=== PATIENT | male | born 1965 | race Caucasian/White ===

== ENCOUNTER 2016-05-11 05:40 | Inpatient (IN) | payer BC, OTHER ==
--- NOTE | 2016-05-07 13:37 | PREOPHP ---
DATE OF ADMISSION: 05/11/2016 he patient to have surgery with Dr. Fabricio Owen 05/11/2016. REASON FOR CONSULTATION: Consultation requested by Dr. Fabricio Owen for medical evaluation and cl earance of a 51-year-old gentleman about to undergo surgery on his left shoulder. Thank you, Dr. Owen, for allowing us to participate in the care of this patient. HISTORY OF PRESENT ILLNESS: Leonides Sierra a 51-year-old gentleman with multiple surgeries on both stanley ulders, replacement x2, is currently being admitted for a failed left shoulder replacement for a rev ision and repair. PAST MEDICAL HISTORY: Other than his multiple shoulder surgeries, he has had arthroscopic surgeries on those shoulders as well, had laparoscopic cholecystectomy done, and has had an umbilical hernia repair in the past. He has had no medical hospitalizations nonsurgical. MEDICATIONS: He is currently taking the following medications: Mucinex D and Claritin-D periodical ly, Aleve as needed. ALLERGIES: TYLENOL WITH CODEINE, PROBABLY A SENSITIVITY MORE SO THAN AN ALLERGY. GENERAL HEALTH: Other than his shoulders has been quite good. SOCIAL HISTORY: The patient is , has 2 children. He does not smoke, or drink alcoholic beve rages. Does not drink coffee , and usually has no difficulty sleeping at night. FAMILY HISTORY: Mother age 44 of a stroke, had an aneurysm. Father is 80, [facility] 2 and atrial fibrillation. One brother in good health. There is a family history of diabet es and heart disease, cancer, hypertension, and stroke. REVIEW OF SYSTEMS: HEENT: Periodic migraine headaches and some tension headaches. CARDIORESPIRATORY: Denies any chest pain or shortness of breath. GASTROINTESTINAL: No melena or hematemesis. MUSCULOSKELETAL: Positive for left shoulder pain. NEUROPSYCHIATRIC: Unremarkable. GENERAL HEALTH: As above. PHYSICAL EXAMINATION: VITAL SIGNS: The patient's blood pressure was 160/76, pulse was 76 and regular, respirations 18, te mperature 98.1. Height 5 feet 5-1/2 inches, weight 197 pounds. GENERAL: The patient was noted to be a well-developed, well-nourished male, alert and cooperative, in no apparent acute distress, oriented to time, place, and person. HEAD, EARS, EYES, NOSE AND THROAT: Head was atraumatic. Eyes: Pupils were equal, reactive to ligh t and accommodation. Fundi were benign. Tympanic membranes were unremarkable. Nose was negative. Mouth was unremarkable. Fair oral hygiene was present. NECK: Supple without any rigidity. Trachea was midline. Thyroid was unremarkable. Fair oral hygi zhen was noted. NECK: Supple without any rigidity. Trachea was midline. Thyroid was unremarkable. Neck veins wer e flat. Carotid pulses were equal. No bruits were heard. BACK: Unremarkable. CHEST: Symmetrical. BREASTS AND AXILLARY: Did not reveal any masses. LUNGS: Clear to percussion and auscultation. HEART: PMI is fifth intercostal space at the midclavicular line. A regular sinus rhythm was noted. No significant murmurs, rubs, or gallops being elicited. ABDOMEN: Soft. Good bowel sounds were noted. No significant organomegaly, masses, or tenderness. GENITALIA: Normal male external genitalia. RECTAL AND PROSTATIC: Per PCP, up to date, unremarkable. EXTREMITIES: Did not reveal any clubbing, edema, or cyanosis. Scars were noted on both shoulder ar eas from prior replacements and revisions. Peripheral pulses were physiologic. SKIN: Moist and warm without any eruptions. No gross lymphadenopathy was noted. NEUROLOGIC: Grossly intact. IMPRESSION: 1. Failed left shoulder replacement. 2. Status post bilateral shoulder replacements, right and left. 3. Hypertension. 4. Degenerative joint disease. 5. Stable health. DISCUSSION: Review of laboratory and other data revealed the following: Patient's chemistry panel revealed normal electrolytes, glucose, BUN, creatinine. Liver function tests were basically normal with minimally elevated ALT and AST, probably secondary to fatty infiltration of liver. Patient's h emoglobin A1c was normal, as was his CBC, sed rate, UA, PT, PTT were normal as well. Patient's EKG and chest x-ray were normal, and his bladder scan revealed a residual of 26 mL, well in normal accep table range. DISCUSSION: Dr. Owen, I see no contraindication in this patient undergoing current proposed surg rachel under desired form of anesthesia, and I feel he is a suitable candidate at this particular point in time, and I will be more than happy to follow him up during his stay at [facility]. Thank you again, Dr. Owen, for allowing us to participate in the care of this patient. Dictated By: SHOBHA BROOKE MD SS/JANNY Conf#: [id number] DID#: [id number]
[2016-05-10 11:57] VITALS: Ht 167.6 cm; Wt 88.1 kg
[~2016-05-11] VITALS: Ht 167.6 cm; Wt 88.1 kg
[2016-05-11] VITALS (18 sets, daily range): BP systolic 122–159; BP diastolic 75–95; PULSE 74–110; RESP 12–20
[~2016-05-11 05:40] MED LIST: BUPIVACAINE 0.5% (SDV) 30 ML, morphine SULFATE (PF) 8 MG, EPINEPHrine 0.3 MG, KETOROLAC... IRR SCH; DOXY100T20 PO; METO25TA7 PO
[2016-05-11] MEDS ORDERED: CEFAZOLIN 2 GM/50 ML (PMX) 50 ML IVPB ONE (06:00)
[2016-05-11] MEDS ORDERED: TRANEXAMIC ACID 1,000 MG in SOD CHLORIDE 0.9% 100 ML IVPB ONE (06:00)
[2016-05-11] MEDS ORDERED: traMADol 50 MG TAB PO ONE (06:00)
[2016-05-11] MEDS ORDERED: oxyCODONE (CR) 10 MG TAB [oxyCONTIN] PO ONE (06:00)
[2016-05-11] MEDS ORDERED: DEXAMETHASONE 1 MG TAB PO ONE (06:00)
[2016-05-11] MEDS ORDERED: GABAPENTIN 300 MG CAP PO ONE (06:00)
[2016-05-11] MEDS ORDERED: BUPIVACAINE 0.5%/EPI (SDV) 30 ML INJ ONE (06:33)
[2016-05-11] MEDS ORDERED: THROMBIN 5000 UNIT VIAL ONE (06:33)
[2016-05-11] MEDS ORDERED: CA CHLORIDE 10% 10 ML SYRINGE ONE (06:33)
[2016-05-11] MEDS ORDERED: POLYMYXIN/BACITRACIN 1L IRRIG ONE (06:33)
--- NOTE | 2016-05-11 06:43 | HPN ---
Date/Time of Note Date/Time of Note DATE: 05/11/16 TIME: 06:42 Interval H&P Admission Note Pt. seen H&P reviewed: No system changes SYLVIA PAYTON MD May 11, 2016 06:42
[2016-05-11] MEDS ORDERED: LORA10CA PO (06:50)
[2016-05-11] MEDS ORDERED: ALBU2.5V3 NEB (06:51)
[2016-05-11] MEDS ORDERED: ROCURONIUM 50 MG INJ ONE (06:55)
[2016-05-11] MEDS ORDERED: DEXAMETHASONE 4 MG/ML 1 ML INJ ONE (06:55)
[2016-05-11] MEDS ORDERED: LIDOCAINE 100 MG SYRINGE ONE (06:55)
[2016-05-11] MEDS ORDERED: FENTAnyl 50 MCG/ML VIAL ONE (06:55)
[2016-05-11] MEDS ORDERED: ONDANSETRON 4 MG INJ ONE (06:55)
[2016-05-11] MEDS ORDERED: GLYCOPYRROLATE 0.4 MG INJ ONE (06:55)
[2016-05-11] MEDS ORDERED: NEOSTIGMINE 3 MG/3 ML SYRINGE ONE (06:55)
[2016-05-11] MEDS ORDERED: PROPOFOL 20 ML ONE (06:55)
[2016-05-11] MEDS ORDERED: MIDAZOLAM 1 MG/ML 2 ML INJ ONE (06:55)
[2016-05-11] MEDS ORDERED: ROPIVACAINE 0.5 % 30 ML VIAL ONE (06:56)
[2016-05-11] MEDS ORDERED: CEFAZOLIN 1 GM INJ ONE (07:00)
[2016-05-11] MEDS: BUPIVACAINE 0.5% (SDV) 30 ML, morphine SULFATE (PF) 8 MG, EPINEPHrine 0.3 MG, KETOROLAC... IRR SCH ×14 (07:53→11:19)
[2016-05-11] MEDS ORDERED: FENTAnyl 50 MCG/ML VIAL IV PRN ×3 (08:00)
[2016-05-11] MEDS ORDERED: hydrALAzine 20 MG INJ IV PRN (08:00)
[2016-05-11] MEDS ORDERED: DIPHENHYDRAMINE 50 MG INJ IV PRN ×2 (08:00→09:00)
[2016-05-11] MEDS ORDERED: LABETALOL HCL 20MG INJ IV PRN (08:00)
[2016-05-11] MEDS ORDERED: MEPERIDINE 25 MG INJ IV PRN (08:00)
[2016-05-11] MEDS ORDERED: HYDROmorphONE (0.2 MG/ML) 10ML SYG IV PRN ×3 (08:00)
[2016-05-11] MEDS ORDERED: EPHEDrine SULFATE 50 MG/5 ML SYG IV PRN (08:00)
[2016-05-11] MEDS ORDERED: ONDANSETRON 4 MG INJ IV PRN ×2 (08:00→09:00)
[2016-05-11] MEDS ORDERED: TRIMETHOBENZAMIDE 100 MG/ML VIAL IM PRN (08:00)
[2016-05-11] MEDS ORDERED: MIDAZOLAM 1 MG/ML 2 ML INJ IV PRN (08:00)
[2016-05-11] MEDS ORDERED: ALBUTEROL 0.083% (NEB) 2.5 MG/3 ML AMP NEB PRN ×2 (09:00→14:30)
[2016-05-11] MEDS ORDERED: morphine 2 MG INJ IV PRN (09:00)
[2016-05-11] MEDS ORDERED: TRANEXAMIC ACID 1,000 MG in SOD CHLORIDE 0.9% 100 ML IV ONE (09:00)
[2016-05-11] MEDS ORDERED: ZOLPIDEM 5 MG TAB PO PRN (09:00)
[2016-05-11] MEDS ORDERED: morphine 4 MG/ML VIAL IV PRN (09:00)
[2016-05-11] MEDS ORDERED: MAGNESIUM HYDROXIDE 30ML CUP PO PRN (09:00)
[2016-05-11] MEDS ORDERED: OXYCODONE/ACETAMINOPHEN (5/325) TAB PO PRN (09:00)
[2016-05-11] MEDS ORDERED: LORATADINE 10 MG TAB PO PRN (09:00)
[2016-05-11] MEDS ORDERED: KETOROLAC 15 MG INJ IV PRN (09:00)
[2016-05-11] MEDS ORDERED: ACETAMINOPHEN 500 MG TAB PO PRN (09:00)
--- NOTE | 2016-05-11 09:32 | OPR ---
DATE OF OPERATION: 05/11/2016 SURGEON: Sylvia Owen MD FAMILY SERVICES MANAGER: Chapito Perez MD PREOPERATIVE DIAGNOSIS: Failed left shoulder hemiarthroplasty. POSTOPERATIVE DIAGNOSIS: Failed left shoulder hemiarthroplasty. OPERATION PERFORMED: Revision of left shoulder hemiarthroplasty to reverse total shoulder replaceme nt. [employer] surgeon, Chapito Perez MD, was asked to be present at my request as a result of the complexit y associated with the procedure, including positioning of the extremity, manipulation and protection of the neurovascular structures. In my opinion, the assistance offered by a certified surgical first assistant is insufficient and Dr. Perez should be compensated for his time. PROCEDURE IN DETAIL: Following administration of general endotracheal anesthesia, the patient was p laced in the beach chair position. The previously made deltopectoral incision was then incised. Th e subdeltoid plane was entered and severe scar tissue was then encountered. The subscapularis was s een to be intact. The superior rotator cuff was very thin and nearly completely torn. The joint it self was then entered and the subscapularis and supraspinatus were completely detached and retracted . The humeral component was noted to be grossly loose. One culture was taken and sent for later an alysis. In addition, the evaluation revealed no significant inflammatory component consistent with any infectious process. Once the humeral shaft was removed atraumatically. The glenoid was then exposed. Very severe scar tissue was then resected from around the edges and the central portion of the glenoid was noted to b e fairly well positioned with a good peripheral edge. The decision was then made to perform a prima ry baseplate insertion with no bone grafting. The base of the glenoid face was then reamed up to th e standard baseplate, a 30 mm DePuy baseplate was then applied with solid fixation. Four peripheral screws were inserted with good fixation throughout. A 36 mm glenosphere was then applied. The humeral canal was then reamed up to the 10 mm size. A 10 mm DePuy humeral component with a 3 mm liner was then inserted. This was seen to be the best fit. The shaft and joint were irrigated. T he actual components were then implanted with solid fixation. The joint was taken through a full ra nge of motion with no evident instability. Thorough irrigation was then undertaken. The wound was closed in layers a Prineo dressing was then applied for closure with a watertight seal. The patient was awakened and transported to recovery in stable condition, tolerated procedure well. Estimated blood loss for this procedure was 100 mL. P ostoperative x-rays will be obtained in the recovery room. Dictated By: SYLVIA MCKEON/JANNY Conf#: [id number] DID#: [id number]
--- NOTE | 2016-05-11 10:13 | RADRPT ---
PROCEDURE: XR of the left Shoulder. CLINICAL INDICATION: Postop of the left shoulder TECHNIQUE: Three views of the left shoulder are available for review including AP - Grashey, scapula r Y-view and axillary view. COMPARISON: 05/15/2013 FINDINGS: Since prior examination of 05/15/2013, the left shoulder prosthesis has been revised and replaced. There is a reverse shoulder prosthesis in good position and alignment. No evidence for fracture or bone destructive change. IMPRESSION: 1. Good position and alignment of the left shoulder prosthesis. 2. No acute fractures seen. RPTAT: XX .Bertin White MD, MD Date Time Electronically viewed and signed by .Bertin White MD, on 05/11/2016 10:13 .T/
--- NOTE | 2016-05-11 10:28 | CONS ---
DATE OF ADMISSION: 05/11/2016 DATE OF CONSULTATION: TYPE OF CONSULTATION: Postoperative followup. The patient has had surgery with Dr. Fabricio Owen for a failed shoulder replacement on the left si de. HISTORY OF PRESENT ILLNESS: Patient seen in the recovery room, alert, answering questions appropria tely with no major complaints. OBJECTIVE VITAL SIGNS: Reveal the following, the patient is afebrile, temperature 98.2, pulse 92, respiration s 14, blood pressure 129/78, O2 sat 97%. HEENT: Unremarkable. LUNGS: Clear. HEART: Reveals a regular rhythm. The rest of the exam compatible with status post left shoulder felix rgery. IMPRESSION: 1. Status post revision of the left shoulder replacement. 2. Allergies and asthma. 3. Hypertension, low level. 4. Stable health. DISCUSSION: Plan is to follow him with you in terms of his major issues, which are his allergies an d occasionally his blood pressure; however, blood pressure preoperatively was quite acceptable as we ll as his value postoperatively. We will monitor him during his prior procedures, he has sometimes required medication in terms of controlling his blood pressure. The rest of management per Dr. Owen. Thank you again, Dr. Owen, for allowing us to participate in the care of this patient. Dictated By: SHOBHA FIELDS/JANNY Conf#: [id number] DID#: [id number]
--- NOTE | 2016-05-11 11:04 | PDOCDIS ---
Discharge Instructions DIAGNOSIS Discharge Diagnosis: Shoulder failed arthroplasty CONDITION Patient Condition: Good HOME CARE INSTRUCTIONS: Diet Instructions: Regular ACTIVITY: Activity Restrictions: Slowly Increase Activity Keep Limb Elevated FOLLOW UP/APPOINTMENTS Appointments 2 weeks SCHOOL/WORK RELEASE May return to School/Work with: With Restrictions School/Work Release Comment: Five pound table top usage for four weeks SYLVIA PAYTON MD May 11, 2016 11:04
[2016-05-11] MEDS: CEFAZOLIN 1 GM/50 ML (PMX) 50 ML IVPB SCH ×2 (12:19→20:24)
[2016-05-11] MEDS: DEXAMETHASONE 2 MG TAB PO SCH ×3 (12:19→23:26)
[2016-05-11] MEDS: SENNA/DOCUSATE NA (8.6MG/50MG) TAB PO SCH ×2 (12:20→20:26)
[2016-05-11] MEDS: METOPROLOL (XL) 25 MG TAB PO SCH (17:14)
[2016-05-11] MEDS ORDERED: GABAPENTIN 300 MG CAP PO SCH (21:00)
[2016-05-11] MEDS: OXYCODONE/ACETAMINOPHEN (5/325) TAB PO PRN (23:26)
[2016-05-12] MEDS: CEFAZOLIN 1 GM/50 ML (PMX) 50 ML IVPB SCH (04:26)
--- NOTE | 2016-05-12 05:03 | DS ---
Date/Time of Note Date/Time of Note DATE: 05/12/16 TIME: 05:01 Discharge Summary Admission/Discharge Info Admit Date/Time May 11, 2016 at 05:40 Discharge Date/Time May 12, 2016 Final Diagnosis Failed shoulder partial replacement Patient Condition: Good Procedures Reverse total shoulder replacement Hx of Present Illness Pain and stiffness following partial replacement in 2013 Hospital Course Surgery, followed by observation overnight. D/c home in am Home Meds Reported Medications Albuterol Sulfate* (Albuterol Sulfate* Neb) 0.083%-3 Ml Neb, 1.25 MG NEB Q3H Y for WHEEZING AND SOB, #30 VIAL 05/11/16 Loratadine* (Claritin*) 10 Mg Capsule, 10 MG PO DAILY Y for ALLERGIC REACTION, CAP 05/11/16 Discontinued Reported Medications Doxycycline Hyclate* (Doxycycline Hyclate*) 100 Mg Tablet.dr, 100 MG PO BID, TAB 08/04/15 Metoprolol Succinate* (Toprol XL*) 25 Mg Tab.sr.24h, 25 MG PO HS, #30 TAB 08/04/15 Follow-up Plan Two weeks SYLVIA PAYTON MD May 12, 2016 05:03
[2016-05-12 05:26] LABS: ADD SCAN DIFF NO
[2016-05-12 05:35] VITALS: BP 141/89; PULSE 98; RESP 18
[2016-05-12 05:48] LABS: BASOPHILS % 0.1 % (0.0-2.0); HEMATOCRIT 43.2 % (42.0-52.0); HEMOGLOBIN 14.8 g/dl (14.0-18.0); LYMPHOCYTES # 1.1 10^3/ul (0.8-2.9); LYMPHOCYTES % 5.3 % (15.0-51.0); MEAN CORPUSCULAR HEMOGLOBIN 28.7 pg (29.0-33.0); MEAN CORPUSCULAR HGB CONC 34.3 g/dl (32.0-37.0); MEAN CORPUSCULAR VOLUME 83.7 fl (82.0-101.0); MONOCYTE # 1.4 10^3/ul (0.3-0.9); MONOCYTES % 6.6 % (0.0-11.0); NEUTROPHIL # 18.9 10^3/ul (1.6-7.5); NEUTROPHILS % 87.4 % (39.0-77.0); PLATELET COUNT 215 10^3/UL (140-415); RED BLOOD COUNT 5.16 10^6/ul (4.70-6.10); RED CELL DISTRIBUTION WIDTH 13.2 % (11.5-14.5); WHITE BLOOD COUNT 21.6 10^3/ul (4.8-10.8)
[2016-05-12] MEDS: DEXAMETHASONE 2 MG TAB PO SCH (05:50)
[2016-05-12 06:15] LABS: POTASSIUM 4.4 mmol/L (3.5-5.1)
[2016-05-12 06:17] LABS: CREATININE 0.71 mg/dl (0.61-1.24)
[2016-05-12 06:18] LABS: ALBUMIN/GLOBULIN RATIO 1.37; BILIRUBIN,INDIRECT 0.1 mg/dl (0-1.1); BILIRUBIN,TOTAL 0.1 mg/dl (0.2-1.3); CALCIUM 9.3 mg/dl (8.4-10.2); TOTAL PROTEIN 6.9 g/dl (6.1-8.1)
[2016-05-12] MEDS: OXYCODONE/ACETAMINOPHEN (5/325) TAB PO PRN (07:31)
[2016-05-12 07:54] VITALS: BP 148/89; RESP 18
--- NOTE | 2016-05-12 08:32 | CONS ---
DATE OF ADMISSION: 05/11/2016 DATE OF CONSULTATION: POSTOPERATIVE CONSULTATION FOLLOWUP SUBJECTIVE: The patient is alert, doing well, will be going home today if cleared by physical thera py. No particular complaints. OBJECTIVE: VITAL SIGNS: Temperature 97.3, pulse 82, respirations 18, blood pressure 148/89, O2 sat 96% on room air. HEENT: Unremarkable. LUNGS: Clear. HEART: Reveals a regular rhythm. EXTREMITIES: Left shoulder looks fine in terms of his prior deformities. IMPRESSION: 1. Status post revision of total shoulder replacement on the left side. 2. Hypertension and tachycardia, controlled. DISCUSSION: The patient is quite comfortable at this particular point in time. His white count is elevated, probably secondary to steroid use, with a low lymphocyte count compatible with steroid use . The patient's chemistries including electrolytes, glucose, BUN, and creatinine are all within nor mal limits. Plan is per Dr. Owen. The patient will be going home if cleared by physical therapy . The patient has been given a prescription for Toprol-XL 25 mg 1 b.i.d. The patient needed to mary e that after his last surgical encounter and was advised to follow up with his primary care doctor i n terms of further followup for blood pressure, etc. Thank you again, Dr. Owen, for allowing us to participate in care of this patient. Dictated By: SHOBHA BROOKE MD SS/JANNY Conf#: [id number] DID#: [id number]
[2016-05-12] MEDS ORDERED: ASPIRIN 81 MG TAB PO SCH (09:00)
[2016-05-12] MEDS: SENNA/DOCUSATE NA (8.6MG/50MG) TAB PO SCH (09:01)
[2016-05-12] MEDS: METOPROLOL (XL) 25 MG TAB PO SCH (09:02)
--- NOTE | 2016-05-12 10:29 | PN ---
Date/Time of Note Date/Time of Note DATE: 05/12/16 TIME: 10:25 24 hour Interval Summary Feeling well, no pain. He has been in the sling overnight. His block has resolved. He is eating well without nausea or emesis. He feels ready for discharge home. Physical Exam Vital Signs Date Time Temp Pulse Resp B/P Pulse Ox O2 Delivery O2 Flow Rate FiO2 05/12/16 07:54 97.3 82 18 148/89 96 05/12/16 05:35 Nasal Cannula 2.0 Intake and Output 05/11/16 05/11/16 05/12/16 15:00 23:00 07:00 Intake Total 2210 ml 1800 ml 900 ml Output Total 50 ml 1650 ml 850 ml Balance 2160 ml 150 ml 50 ml VTE Prophylaxis VTE Prophylaxis Intervention: ambulation, anti-embolic stocking Lines/Catheters IV Catheter Type: Peripheral IV Joseph in Place: No Results Result Diagram: 05/12/16 0453 05/12/16 0453 Results 24hrs Laboratory Tests Test 05/12/16 04:53 Alanine Aminotransferase (ALT/SGPT) 64 Albumin 4.0 Albumin/Globulin Ratio 1.37 Alkaline Phosphatase 63 Anion Gap 16 Aspartate Amino Transf (AST/SGOT) 41 Basophils # 0.0 Basophils % 0.1 Blood Urea Nitrogen 15 Calcium Level 9.3 Carbon Dioxide Level 28 Chloride Level 102 Creatinine 0.71 Direct Bilirubin 0.00 Eosinophils # 0.0 Eosinophils % 0.0 Globulin 2.90 Glucose Level 168 Hematocrit 43.2 Hemoglobin 14.8 Indirect Bilirubin 0.1 Lymphocytes # 1.1 Lymphocytes % 5.3 L Mean Corpuscular Hemoglobin 28.7 L Mean Corpuscular Hemoglobin Concent 34.3 Mean Corpuscular Volume 83.7 Mean Platelet Volume 11.0 H Monocytes # 1.4 H Monocytes % 6.6 Neutrophils # 18.9 H Neutrophils % 87.4 H Nucleated Red Blood Cells # 0.0 Nucleated Red Blood Cells % 0.0 Platelet Count 215 Potassium Level 4.4 Red Blood Count 5.16 Red Cell Distribution Width 13.2 Sodium Level 142 Total Bilirubin 0.1 L Total Protein 6.9 White Blood Count 21.6 H Assessment/Plan Chief Complaint/Hosp Course Surgery, followed by observation overnight. D/c home in am Problems: Assessment/Plan 51 y/o M s/p revision left shoulder replacement to reverse total shoulder. - Oral pain control as needed. - Ambulation/SCD's for DVT PPX - Sling at all times except for showers - Ready for DC home today. Medications Medications Home Meds Reported Medications Albuterol Sulfate* (Albuterol Sulfate* Neb) 0.083%-3 Ml Neb, 1.25 MG NEB Q3H Y for WHEEZING AND SOB, #30 VIAL 05/11/16 Loratadine* (Claritin*) 10 Mg Capsule, 10 MG PO DAILY Y for ALLERGIC REACTION, CAP 05/11/16 Discontinued Reported Medications Doxycycline Hyclate* (Doxycycline Hyclate*) 100 Mg Tablet.dr, 100 MG PO BID, TAB 08/04/15 Metoprolol Succinate* (Toprol XL*) 25 Mg Tab.sr.24h, 25 MG PO HS, #30 TAB 08/04/15 ESTER KING MD May 12, 2016 10:29
== END 2016-05-12 15:25 | disposition home or self-care (01) | DRG 483 ==
LOC: REC 05:40 → MS1 10:30 → EDSTATUS 11:00
PROVIDERS: ADMIT Orthopaedic Surgery; ATTEND Orthopaedic Surgery
PROC: 0RPK0JZ Removal of Synthetic Substitute from Left Shoulder Joint, Open Approach (ICD-10-PCS; 2016-05-11)
PROC: 0RRK00Z Replacement of Left Shoulder Joint with Reverse Ball and Socket Synthetic Substitute, Open Approach (ICD-10-PCS; principal; 2016-05-11 07:00)
DX: T84.098A Other mechanical complication of other internal joint prosthesis, initial encounter (principal); I10 Essential (primary) hypertension
CPT/HCPCS: 73030; 80053; 85025; 86999; 87070; 87075; 87102; 87116; Z7610; C1713; C1776; J0171; J0690; J0735; J1100; J1885; J2001; J2250; J2274; J2405; J2710; J2795; J3010; J3370